=== PATIENT | female | born 1955 | race Caucasian/White ===

== ENCOUNTER 2017-06-16 15:28 | Emergency (ER) | payer BC ==
[~2017-06-16] VITALS: Ht 165.1 cm; Wt 70.3 kg
[~2017-06-16 15:28] MED LIST: ASPIR 8181 MG PO; BENAZEPRIL20 M1 PO; LAC PO; LEVAQUIN750 MG PO; SIMVASTATIN20 M1 GT
[2017-06-16 15:45] VITALS: Ht 165.1 cm; Wt 70.3 kg
[2017-06-16 20:20] VITALS: BP 124/75
== END 2017-06-16 20:20 | disposition home or self-care (01) ==
LOC: ED 15:28
DX: R05 Cough (principal); R11.0 Nausea; I10 Essential (primary) hypertension; Z90.710 Acquired absence of both cervix and uterus